=== PATIENT | female | born 1960 | race African-American/Black ===

== ENCOUNTER → 2016-12-29 | Outpatient (CLI) | payer OTHER ==
--- NOTE | 2016-12-29 15:34 | RAD ---
EXAM: DIGITAL DIAGNOSTIC BILATERAL. HISTORY: Follow-up calcifications in the left breast. Annual screening of the right breast. COMPARISON: Left mammogram 06/11/2016 and 12/03/2015. Bilateral mammogram 11/26/2015 and 11/07/2014. FINDINGS: Digital mammography was performed. Computer-aided detection (CAD) was utilized. The breast parenchyma is heterogeneously dense, which could reduce sensitivity of mammography (tissue density C). No dominant suspicious mass or architectural distortion is identified. The cluster of calcifications of interest in the medial inferior left breast do not appear significantly changed from previous studies of 2016 and also appear fairly similar to other calcifications within the left breast. These calcifications are thought probably benign. IMPRESSION: 1. No significant change in appearance of calcifications of interest involving the left breast. These have a probably benign appearance. Recommend continued follow-up diagnostic left mammogram in 6 months. 2. No mammographic evidence of malignancy in the right breast. BI-RADS CATEGORY: 3 PROBABLY BENIGN FINDING(S)-SHORT INTERVAL FOLLOW-UP SUGGESTED RECOMMENDED FOLLOW-UP: 6M 6 MONTH FOLLOW-UP PQRS compliance statement: Patient information was entered into a reminder system with a target due date for the next mammogram. Mammography is a sensitive method for finding small breast cancers, but it does not detect them all and is not a substitute for careful clinical examination. A negative mammogram does not negate a clinically suspicious finding and should not result in delay in biopsying a clinically suspicious abnormality. "Our facility is accredited by the [employer] Mammography Program."
== END | disposition home or self-care (01) ==
LOC: MAMMO 14:59
PROVIDERS: ATTEND Physician Assistant Medical
DX: R92.1 Mammographic calcification found on diagnostic imaging of breast (principal)
CPT/HCPCS: G0204; 77066

== ENCOUNTER → 2017-07-01 | Outpatient (CLI) | payer OTHER ==
--- NOTE | 2017-07-01 13:45 | RAD ---
DATE: 07/01/2017 EXAM: DIGITAL DIAGNOSTIC LT HISTORY: 6 month follow-up for calcifications COMPARISON: Previous diagnostic bilateral mammogram from 12/29/2016 and screening mammogram from 11/26/2015 This study was interpreted with the benefit of Computerized Aided Detection (CAD). CC, MLO and magnification CC and magnification MLO views of the left breast obtained. FINDINGS: Breast Density: HETERO The breast parenchyma Is heterogeneously dense, which could reduce sensitivity of mammography. Breast parenchyma level C. Scattered regional calcifications are seen in the inner lower quadrant of the left breast which are stable when compared to previous magnification views from 12/03/2015. Additional scattered calcifications are seen in the left breast. No calcifications demonstrate suspicious morphology, architectural distortion or spiculated masses. IMPRESSION: Stable scattered regional calcifications in the lower inner left breast when compared to previous study from 2016. One more follow-up with magnification views of the left breast is recommended to document stability for 2 years. BI-RADS CATEGORY: 3 PROBABLE BENIGN FINDING(S-SHORT INTERVAL FOLLOW-UP SUGGESTED RECOMMENDED FOLLOW-UP: ADD ADDITIONAL IMAGING. Magnification views of the left breast in 6 months recommended. PQRS compliance statement: Patient information was entered into a reminder system with a target due date for the next mammogram. Mammography is a sensitive method for finding small breast cancers, but it does not detect them all and is not a substitute for careful clinical examination. A negative mammogram does not negate a clinically suspicious finding and should not result in delay in biopsying a clinically suspicious abnormality. "Our facility is accredited by the [employer] Mammography Program."
== END | disposition home or self-care (01) ==
LOC: MAMMO 11:07
PROVIDERS: ATTEND Nurse Practitioner Family
DX: R92.1 Mammographic calcification found on diagnostic imaging of breast (principal); R92.2 Inconclusive mammogram
CPT/HCPCS: G0206; 77065

== ENCOUNTER → 2017-07-30 | Outpatient (CLI) | payer OTHER ==
--- NOTE | 2017-07-30 11:40 | RAD ---
Exam: Right foot radiograph Indication: Right foot pain. No history of trauma. History of prior fracture. Comparison: Right foot radiograph 07/10/2012 Technique: 3 views of the right foot are provided. Findings: There is no acute fracture or dislocation. Osseous remodeling of the fifth metatarsal is secondary to remote fracture. Mild joint space narrowing involving the first tarsometatarsal joint with subcortical sclerosis along the proximal phalanx. No soft tissue swelling. No osseous erosion or soft tissue gas. Bone mineralization is within normal limits. Impression: No acute fracture or dislocation. 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
== END | disposition home or self-care (01) ==
LOC: RAD 10:54
PROVIDERS: ATTEND General Practice
DX: M19.071 Primary osteoarthritis, right ankle and foot (principal)
CPT/HCPCS: 73630

== ENCOUNTER → 2019-04-12 | Outpatient (CLI) | payer OTHER ==
--- NOTE | 2019-04-12 13:44 | RAD ---
Bone mineral density exam History: Arthritis, takes calcium Comparison: None Findings: Bone mineral density examination utilizing DEXA was performed. Right femur bone mineral density of 882 mg/cm2 corresponds with a T score -0.6, Z score -0.1. The bone mineral density of the lumbar spine was 1.081 g/cm2 which corresponds with a T-score of -0.8, Z score -0.2. By World Congress on Osteoporosis criteria, a T score of 0 to-1 SD is considered to be within normal limits. A T score of -1 to -2.5 SD is considered osteopenia. A T score less than -2.5 SD is considered osteoporosis Impression: 1. Bone mineral density of the lumbar spine and the right femur is considered within normal limits. Electronically signed by: Yasmani Stack MD (04/12/2019 1:41 PM) [id number]
== END | disposition home or self-care (01) ==
LOC: DXRAD 11:23
PROVIDERS: ATTEND Physician Assistant Medical
DX: E28.39 Other primary ovarian failure (principal); M19.90 Unspecified osteoarthritis, unspecified site
CPT/HCPCS: 77080

== ENCOUNTER → 2020-04-21 | Outpatient (CLI) | payer OTHER ==
--- NOTE | 2020-04-25 16:39 | RAD ---
BILATERAL SCREENING MAMMOGRAM, 3-D History: Routine screening. Comparison: 11/07/2014, 11/26/2015, 12/29/2016 and 10/02/2018. Technique: MLO and CC digital tomosynthesis (3D) images obtained. Radiologist reviewed these images on dedicated workstation. Findings: Breast Tissue Density C : The breasts are heterogeneously dense, which may obscure small masses. There are no dominant masses, suspicious microcalcifications, or architectural distortion. Left breast calcifications are stable. IMPRESSION: No mammographic evidence of malignancy. Recommend routine screening. BI-RADS category 1: Negative. The images were reviewed with computer-aided detection. Patient information is entered into reminder system with a target due date for the next screening mammogram. Mammography is the most sensitive method for finding small breast cancers, but it does not detect them all and is not a substitute for careful clinical examination. A negative mammogram does not negate a clinically suspicious finding and should not result in delay in biopsying a clinically suspicious abnormality. "Our facility is accredited by the [employer] Mammography Program." Electronically signed by: Rafael Wilson MD (04/25/2020 4:36 PM) [facility]
== END ==
LOC: MAMMO 15:27
PROVIDERS: ATTEND Physician Assistant Medical
DX: Z12.31 Encounter for screening mammogram for malignant neoplasm of breast (principal)
CPT/HCPCS: 77063; 77067